=== PATIENT | male | born 1985 | race Caucasian/White ===

== ENCOUNTER 2017-08-13 08:17 | Emergency (ER) | payer SELFPAY ==
[2017-08-13] MEDS ORDERED: Dexamethasone 10 MG/ML VIAL ONE (08:46)
[2017-08-13] MEDS ORDERED: Clindamycin/D5W 900 mg/50 ml Premix Bag ONE (08:46)
[2017-08-13] MEDS ORDERED: Ondansetron ODT 4 MG TAB ONE (08:46)
[2017-08-13 09:09] LABS: Hemoglobin 14.6 g/dL (14.0-18.0); Mean Corpuscular Hemoglobin 31.2 pg (27.0-31.0); Mean Corpuscular Volume 94.4 fL (78.0-98.0); Mean Platelet Volume 7.2 fL (7.4-10.4); Platelet Count 442 thou/uL (130-400); RBC Distribution Width 12.3 % (11.5-14.5); Red Blood Cell (RBC) Count 4.66 mill/uL (4.70-6.10); White Blood Cell (WBC) Count 19.8 thou/uL (4.8-10.8)
[2017-08-13 09:28] LABS: ALT (SGPT) 34 U/L (8-55); AST (SGOT) 25 U/L (5-34); Albumin 4.2 g/dL (3.5-5.0); Alkaline Phosphatase 125 U/L (40-150); Anion Gap 12 mmol/L (10-20); BUN (Urea Nitrogen) 15 mg/dL (8.9-20.6); Bilirubin, Total 0.6 mg/dL (0.2-1.2); Calc. Creatinine Clearance 0 mL/min (70-130); Calcium 10.3 mg/dL (7.8-10.44); Carbon Dioxide 27 mmol/L (22-29); Chloride 103 mmol/L (98-107); Estimated GFR-MDRD Greater than 90; Globulin 4.1 g/dL (2.4-3.5); Glucose 101 mg/dL (70-105); Potassium 4.1 mmol/L (3.5-5.1); Protein, Total 8.3 g/dL (6.0-8.3); Sodium 138 mmol/L (136-145)
[2017-08-13 09:29] LABS: Band 4 % (5-11); Eosinophils 1 % (0-10); Lymphocytes 6 % (21-51); MDiff Complete? YES; Metamyelocyte 1 % (0-0); Monocytes 2 % (0-10); Neutrophil 86 % (42-75); PLT Morphology Comment Appears Increased; RBC Morphology Normal
--- NOTE | 2017-08-13 10:55 | CT ---
CT NECK SOFT TISSUES WITH CONTRAST: HISTORY: Fever. Pain to the throat. COMPARISON: None. FINDINGS: There is a large right tonsillar peripherally enhancing fluid collection suggesting abscess. There i s extensive right anterior cervical adenopathy. The right tonsillar abscess measures 2.1 x 3.9 x 3.4 cm. The lung apices are clear. Thyroid is unremarkable. Globes are normal. There is a large periapical erosion of the right mandibular second molar with crown erosion signifyin g infection. IMPRESSION: Findings suggesting a right tonsillar abscess with reactive right anterior cervical and posterior cer vical adenopathy. An underlying cavitary mass cannot be totally excluded, and although this is felt less likely in a patient of this age, HPV squamous cell carcinoma can have a similar appearance. ENT consultation is advised. Direct clinical visualization recommended. POS: [facility]NA
== END 2017-08-13 12:11 | disposition home or self-care (01) ==
LOC: ERS 08:17
DX: J36 Peritonsillar abscess (principal)
CPT/HCPCS: 70491; 80053; 85025; 96365; 96375; J1100; J2270; J3490; Q0162

== ENCOUNTER 2020-03-07 14:37 | Emergency (ER) | payer SELFPAY ==
[2020-03-07 23:32] LABS: SARS-CoV-2 MS2 Positive; SARS-CoV-2 N Gene Negative; SARS-CoV-2 S Gene Negative; SARS-CoV-2 by NAA Not Detected (NotDetected); SARS-CoV-2 orf1ab Negative
== END 2020-03-07 15:30 | disposition home or self-care (01) ==
LOC: ERS 14:37
DX: R09.81 Nasal congestion (principal); J02.9 Acute pharyngitis, unspecified; R50.9 Fever, unspecified; R05 Cough; Z20.822 Contact with and (suspected) exposure to COVID-19
CPT/HCPCS: 87635; 99283; U0003; U0005

== ENCOUNTER 2021-02-08 10:26 | Emergency (ER) | payer SELFPAY ==
[2021-02-08 16:22] LABS: SARS-CoV-2 PCR by NAA Not Detected (NotDetected)
== END 2021-02-08 12:37 | disposition home or self-care (01) ==
LOC: ERS 10:26
DX: J01.90 Acute sinusitis, unspecified (principal); Z79.899 Other long term (current) drug therapy; Z20.822 Contact with and (suspected) exposure to COVID-19
CPT/HCPCS: 99284; U0003; U0005

== ENCOUNTER 2022-11-04 08:19 | Emergency (ER) | payer SELFPAY | END 2022-11-04 10:54 | disposition home or self-care (01) | LOC: ERS 08:19 | DX: S82.115A Nondisplaced fracture of left tibial spine, initial encounter for closed fracture (principal); F17.200 Nicotine dependence, unspecified, uncomplicated; Y35.811A Legal intervention involving manhandling, law enforcement official injured, initial encounter ==